=== PATIENT | female | born 1995 | race African-American/Black ===

== ENCOUNTER → 2019-01-16 | Outpatient (CLI) | payer BC | END | disposition home or self-care (01) | LOC: CFH 13:41 | PROVIDERS: ATTEND Obstetrics & Gynecology | DX: N63.20 Unspecified lump in the left breast, unspecified quadrant (principal); N63.10 Unspecified lump in the right breast, unspecified quadrant | CPT/HCPCS: 76642 ==

== ENCOUNTER → 2019-07-31 | Outpatient (CLI) | payer BC | END | disposition home or self-care (01) | LOC: CFH 12:09 | PROVIDERS: ATTEND Clinical Nurse Specialist Women's Health | DX: N63.12 Unspecified lump in the right breast, upper inner quadrant (principal); D24.1 Benign neoplasm of right breast | CPT/HCPCS: 76642 ==

== ENCOUNTER 2019-08-17 13:32 | Outpatient (CLI) | payer BC ==
[2019-08-17] MEDS ORDERED: LIDOCAINE 1%, 20ML ONE (14:00)
[2019-08-17] MEDS ORDERED: SODIUM BICARBONATE 4.2%, 5ML ONE (14:00)
[2019-08-17] MEDS ORDERED: LIDOCAINE 1%-EPI 1:100K, 20ML ONE (14:00)
== END 2019-08-17 23:59 | disposition home or self-care (01) ==
LOC: CFH 13:32
PROVIDERS: ATTEND Clinical Nurse Specialist Women's Health
DX: N63.15 Unspecified lump in the right breast, overlapping quadrants (principal); D24.1 Benign neoplasm of right breast
CPT/HCPCS: 19083; 88305; J3490